=== PATIENT | male | born 1975 | race Caucasian/White ===

== ENCOUNTER → 2017-05-02 | Outpatient (CLI) | payer OTHER ==
[~2017-05-02] MED LIST: CYMBALTA; FLEXERIL10 MG; NEURONTIN; ULTRAM; VICODIN ES 7.51 EACH PO
--- NOTE | ~2017-05-02 | PFT ---
[id number] [facility]. [place], [place] [address] [id number] O MR#: [id number] NAME: MIREYA ANGULO ROOM: SEX: M STUDY DATE/TIME: 05/02/2017 : 1975 AGE: 41 STUDY DESCRIPTION: Attending Physician: Daphne Branch M.D. Referring Physician: Daphne Branch M.D. Primary Care Physician: Daphne Branch M.D. PULMONARY DIAGNOSTIC REPORT EXAM Pulmonary Function Test DESCRIPTION Spirometry suggests a mild restrictive defect. There is no significant response to bronchodilators. Flow volume loop is essentially normal. Lung volumes reveal no evidence of a restrictive defect. ERV is reduced which can be seen in obesity. Diffusion capacity is normal. Changes are most likely secondary to9 obesity and clinical correlation is needed. Dictated by... Saulo Zuniga M.D. CASPER/cirilo TD: 05/09/2017 07:09 JOB #: [id number] PULMONARY DIAGNOSTIC REPORT Page 1 of 1
== END | disposition home or self-care (01) ==
LOC: CRC 12:57
DX: J98.4 Other disorders of lung (principal)
CPT/HCPCS: 94060; 94726; 94729